=== PATIENT | male | born 1995 | race African-American/Black ===

== ENCOUNTER 2018-05-24 12:47 | Emergency (ER) | payer MEDICAID ==
[~2018-05-24] VITALS: Ht 170.2 cm; Wt 82.0 kg
[2018-05-24] MEDS ORDERED: IBUPROFEN 600MG TABLET PO ONE (13:30)
[2018-05-24 13:58] VITALS: BP 124/70
== END 2018-05-24 14:43 | disposition home or self-care (01) ==
LOC: ER 12:47
DX: S10.83XA Contusion of other specified part of neck, initial encounter (principal); S16.1XXA Strain of muscle, fascia and tendon at neck level, initial encounter; V73.6XXA Passenger on bus injured in collision with car, pick-up truck or van in traffic accident, initial encounter; Y93.89 Activity, other specified; Y92.410 Unspecified street and highway as the place of occurrence of the external cause
CPT/HCPCS: 72040; 99283